=== PATIENT | female | born 1950 | race Caucasian/White ===

== ENCOUNTER 2019-08-09 23:29 | Emergency (ER) | payer OTHER, MEDICARE ==
--- NOTE | 2019-08-09 23:31 | PDOC ---
History of Present Illness - General Chief Complaint: Pain Stated Complaint: ARM PAIN/ANXIETY Time Seen by Provider: 08/09/19 23:31 - History of Present Illness Initial Comments: 08/10/19 00:17 This 69-year-old woman with a history of breast cancer (12 years ago) and TIA in April 2019 presents with sudden onset of discomfort in posterior left upper arm for the last few hours. She also has noted dilated superficial veins of her chest wall and left upper back this evening. No history of trauma in the area of discomfort except for zoster immunization in the mid upper arm 3 weeks ago. She has noted nontender, nonpainful thickened area in the dorsum of the left forearm for the last week. No chest pain, shortness of breath, cough. Patient has a history of venous thrombosis: Left subclavian/IJ veins after placement of Port-A-Cath for chemotherapy after her surgery 12 years ago. No recent surgery/immobilization. 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 Patient was started on statin and aspirin 3 times a week. Patient had right mastectomy with axillary lymph node dissection and left prophylactic mastectomy (no lymph node dissection) in 2007 followed by chemotherapy. Non-smoker; no daily alcohol or recreational drug use Medications as noted below No known allergies Past History - Past Medical History Allergies/Adverse Reactions: Allergies Allergy/AdvReac Type Severity Reaction Status Date / Time No Known Allergies Allergy Verified 02/01/19 11:19 Home Medications: Ambulatory Orders Amlodipine Besylate [Norvasc -] 5 mg PO DAILY 02/01/19 Biotin [Meribin] 5 mg PO HS 02/01/19 Ca/D3/Mag Ox/Zinc/Bisque Tile Burner/Hernandez/Bor [Calcium 600+D3 Plus Caplet] 1 each PO HS Carvedilol 3.125 mg PO DAILY 02/01/19 Levetiracetam [Keppra Xr -] 1,500 mg PO BID 02/01/19 Multivit-Minerals/Folic Acid [One Daily Womens 50 Plus Tab] 0.4 mg PO DAILY Omeprazole 40 mg PO DAILY 02/01/19 Oxcarbazepine [Trileptal] 450 mg PO DAILY 02/01/19 Oxcarbazepine [Trileptal] 600 mg PO HS 02/01/19 Aspirin [Aspirin EC] 81 mg PO WEEKLY 08/09/19 Pravastatin Sodium 10 mg PO HS 08/09/19 Cancer: Yes (BREAST) COPD: No HTN: Yes Seizures: Yes - Surgical History Abdominal Surgery: Yes (ABDOMINOPLASTY) Cholecystectomy: Yes - Psycho Social/Smoking Cessation Hx Smoking History: Never smoked Hx Alcohol Use: No Drug/Substance Use Hx: No Review of Systems - Review of Systems Able to Perform ROS?: Yes Comments:: 12 point review of systems is negative except for what is noted in the history of present illness *Physical Exam - Physical Exam GENERAL: Adult female, alert and oriented x3, no acute distress ; no respiratory distress, speaking in full sentences Pulse oximetry on room air 99 %, RR16/min, 150/95, HR80/min HEAD: Normal with no signs of trauma. EYES: PERRLA, EOMI, sclera anicteric, conjunctiva clear. ENT: Ears normal, nares patent, oropharynx clear without exudates. Moist mucous membranes. NECK: Normal range of motion, supple without lymphadenopathy, JVD, or masses. LUNGS: Breath sounds equal, clear to auscultation bilaterally. No wheezes, and no crackles. HEART:Regular rate and rhythm, normal S1 and S2 2/6 systolic murmur L sternal border, rub or gallop. CHEST WALL: Mildly dilated superficial veins scattered on left chest wall and left upper back ABDOMEN:.normal bowel sounds No guarding,tenderness or rebound.No masses No distention. EXTREMITIES: Left upper extremity-3 cm x 3 cm nontender, nonfluctuant, non- erythematous thickened area of dorsum mid forearm No masses, lacerations/ abrasions or other abnormality evident in posterior upper region where patient is feeling discomfort Radial pulses easily palpable at wrist and equal to right radial pulse No dilated superficial veins evident Remainder of the extremity exam is normal NEUROLOGICAL: Cranial nerves II through XII grossly intact. Normal speech. No focal neurological deficits. MUSCULOSKELETAL: Back non-tender to palpation, no CVA tenderness SKIN: Warm, Dry, normal turgor, no rashes or lesions noted. Twelve-lead electrocardiogram performed: Normal sinus rhythm at 74 bpm; there is poor R wave progression but no acute ST or T wave abnormality seen. [place] is normal as are intervals. There is no evidence of acute cardiac arrhythmia ED Treatment Course - LABORATORY CBC & Chemistry Diagram: 08/10/19 00:20 08/10/19 00:20 Medical Decision Making - Medical Decision Making Because of the patient's history of thromboembolic issues and rebound history of cancer, she is at some risk for current symptoms being secondary to acute thrombosis/embolus, especially suggestive because of appearance of dilated superficial veins in the upper arm and left side of her chest which the patient states she had never seen before. CBC/chemistry profile/troponin/INR/d-dimer sent and IV access obtained. Doppler duplex study of the left upper extremity ordered to evaluate for acute DVT. Preliminary interpretation by Imaging correctional nurse: No evidence of acute DVT or other abnormality. Laboratory evaluation was essentially normal except for mild elevation of d- dimer (523). Although the patient has no acute symptoms for pulmonary embolus, elevated d-dimer and presence of possible dilated superficial veins of the thorax necessitated CT angiogram study. Pulmonary interpretation by Imaging correctional nurse: No evidence of pulmonary embolus. No evidence of thoracic aortic aneurysm or dissection. Lungs are clear of infiltrates, effusions or other acute abnormality. 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 Results discussed with the patient and her daughter. While it is unclear why she had never seen the superficial dilated veins of the collateral system, they are likely related to the left subclavian/internal jugular thrombosis that occurred when her Port-A-Cath was inserted for chemotherapy 12 years ago. The etiology of her left upper arm discomfort is unclear. She has been recommended to monitor the area closely for development of rash, swelling/redness consistent with skin infection or other abnormality. She should follow-up with her general doctor within the next several days. She has an appointment with her breast surgeon, Dr. Zee in 1 week. If she develops more severe pain, swelling/redness in her left arm or chest prior to being evaluated by her doctors, she should return to the ER Discharge - Discharge Information Problems reviewed: Yes Clinical Impression/Diagnosis: Collateral circulation (venous), Left arm pain Condition: Stable Disposition: HOME - Follow up/Referral Referrals: Linda Gonzales MD [Primary Care Provider] - - Patient Discharge Instructions Patient Printed Discharge Instructions: DI for Arm Pain Additional Instructions: Contact your general doctor regarding today's ER visit and follow-up as planned Follow-up with Dr. Zee next week as previously arranged Return to ER if you have any further pain, swelling, redness in your arm Return to ER if you have any shortness of breath, palpitations or chest pain - Post Discharge Activity
[2019-08-09 23:43] VITALS: BP 150/95; PULSE 80; TEMP 98.4; BMI 35.1
[2019-08-10 01:02] LABS: BASO % 0.7 % (0-2.0); EOS % 7.1 % (0-4.5); HEMATOCRIT 36.4 % (32.4-45.2); HEMOGLOBIN 12.4 GM/dL (10.7-15.3); LYMPH % 17.1 % (8-40); MCH 30.6 pg (25.7-33.7); MCHC 34.1 g/dl (32.0-36.0); MEAN CELL VOLUME 89.6 fl (80-96); MEAN PLT VOLUME 7.5 fl (7.5-11.1); MONO % 11.5 % (3.8-10.2); NEUT % 63.6 % (42.8-82.8); PLATELET COUNT 308 K/MM3 (134-434); RBC 4.06 M/mm3 (3.60-5.2); RDW 13.5 % (11.6-15.6); WHITE BLOOD COUNT 7.8 K/mm3 (4.0-10.0)
[2019-08-10 01:15] LABS: INR 0.97 (0.83-1.09); PROTHROMBIN TIME (PATIENT) 11.5 SEC (9.7-13.0)
[2019-08-10 01:33] LABS: ALBUMIN 3.8 g/dl (3.4-5.0); ALK PHOS 115 U/L (45-117); ANION GAP 8 MMOL/L (8-16); BILIRUBIN,TOTAL 0.2 mg/dL (0.2-1); BLOOD UREA NITROGEN 17.6 mg/dL (7-18); CALCIUM 9.1 mg/dL (8.5-10.1); CHLORIDE 100 mmol/L (98-107); CO2 25 mmol/L (21-32); CREATININE 0.6 mg/dL (0.55-1.3); GLUCOSE,RANDOM 123 mg/dL (74-106); POTASSIUM 4.1 mmol/L (3.5-5.1); SGOT/AST 24 U/L (15-37); SGPT/ALT 27 U/L (13-61); SODIUM 134 mmol/L (136-145); TOT PROT 7.1 g/dl (6.4-8.2)
--- NOTE | 2019-08-10 13:15 | EKG ---
Test Reason : Blood Pressure : / mmHG Vent. Rate : 074 BPM Atrial Rate : 074 BPM P-R Int : 174 ms QRS Dur : 104 ms QT Int : 392 ms P-R-T Axes : 043 -10 045 degrees QTc Int : 435 ms NORMAL SINUS RHYTHM CANNOT RULE OUT ANTERIOR INFARCT , AGE UNDETERMINED NONSPECIFIC INTRAVENTRICULAR CONDUCTION DEFECT NONSPECIFIC ST ABNORMALITY Confirmed by NITIN CATES MD ([id number]) on 08/10/2019 1:15:31 PM Referred By: MD ALVA Confirmed By:NITIN CATES MD
== END 2019-08-10 04:47 | disposition home or self-care (01) ==
LOC: FER 23:29
DX: M79.602 Pain in left arm (principal); I87.8 Other specified disorders of veins; Z85.3 Personal history of malignant neoplasm of breast; Z86.73 Personal history of transient ischemic attack (TIA), and cerebral infarction without residual deficits; F41.9 Anxiety disorder, unspecified
CPT/HCPCS: 36415; 71275-TC; 80053; 82550; 84484; 85025; 85379; 85610; 93005; 93971; 99285-25; Q9967

== ENCOUNTER 2020-01-20 05:28 | Day surgery (SDC) | payer OTHER, MEDICARE ==
[2020-01-16 15:25] VITALS: BMI 35.4
[~2020-01-20 05:28] MED LIST: IOHEXOL 300 MG/ML INFUS..BTL IJ ONE
[2020-01-20] MEDS ORDERED: SUCCINYLCHOLINE CHLORIDE 200 MG/10 ML SYRINGE ONE (07:47)
[2020-01-20] MEDS ORDERED: MIDAZOLAM HCL 2 MG/2 ML SINGLE DOSE VIAL ONE (07:47)
[2020-01-20] MEDS ORDERED: PROPOFOL 20 ML ONE (07:47)
[2020-01-20] MEDS ORDERED: EPHEDRINE SULFATE/0.9% NACL/PF 50 MG/10 ML SYRINGE NR ONE (08:30)
[2020-01-20] MEDS ORDERED: IOHEXOL 300 MG/ML INFUS..BTL IJ ONE ×2 (08:31)
[2020-01-20] MEDS ORDERED: DEXAMETHASONE SOD PHOSPHATE 4 MG/1 ML VIAL ONE (08:32)
--- NOTE | 2020-01-20 08:57 | OP ---
Operative Note - Note: Operative Date: 01/20/20 Pre-Operative Diagnosis: right ureteral stone Operation: cystoscopy/right retrograde pyelogram/right ureteroscopic stone manipulation and stent placement Findings: 7+ mm right proximal ureteral stone which is partially obstructing Post-Operative Diagnosis: Same as Pre-op Surgeon: Lacho Tripp Anesthesia: General Drains & Tubes with Location: 12/01 right ureteral stent
[2020-01-20] MEDS ORDERED: ONDANSETRON 4 MG/2 ML VIAL IVPUSH PRN (09:08)
[2020-01-20] MEDS ORDERED: oxyCODONE HCL 5 MG TABLET PO PRN (09:08)
[2020-01-20] MEDS ORDERED: LACTATED RINGERS SOLUTION 1,000 ML IV SCH (09:15)
[2020-01-20 11:56] VITALS: BP 140/82; PULSE 75; TEMP 96.6
--- NOTE | 2020-01-20 18:12 | OP ---
DATE OF OPERATION: 01/20/2020 PREOPERATIVE DIAGNOSIS: Right ureteral stone. POSTOPERATIVE DIAGNOSIS: Right ureteral stone. PROCEDURE: Cystoscopy, right retrograde pyelogram, right ureteroscopic stone manipulation and stent placement. SURGEON: Kalpesh Franklin MD ANESTHESIA: Fractional. DESCRIPTION OF PROCEDURE: Patient was brought to the operating room, placed in the supine position on the operating room table. Ultrasonography and fluoroscopy are performed. It shows a question of a calcific density in the right upper ureter. At this point, a retrograde pyelogram was performed, which showed a question of filling defect in the upper left ureter. There was no evidence of trauma at the distal ureter or ureteral orifice consistent with a recently passed stone. No evidence of stone noted within the gladder. At this point, ureteroscopy was performed and in the upper ureter an obstruction presented itself. A second wire was utilized to transverse this obstruction. The stone was noted; however, with water pressure the stone migrated into the kidney. At this point, it was decided that due to the poor visualization with the hematuric urine now draining from the kidney it was decided that the patient will be best served with a stent and subsequent extracorporeal shockwave lithotripsy. A 6-Macedonian 22-cm stent was placed utilizing Seldinger technique over the wire. At this point, the patient is aroused from anesthesia and sent to the recovery room. No complications were noted. The patient tolerated the procedure very well. KALPESH FRANKLIN M.D. /[id number]
== END 2020-01-20 11:40 | disposition home or self-care (01) ==
LOC: JASU-SURG 05:28
PROVIDERS: ATTEND Urology
PROC: 0T7D8DZ Dilation of Urethra with Intraluminal Device, Via Natural or Artificial Opening Endoscopic (ICD-10-PCS; principal; 2020-01-20 08:00)
PROC: 0T9680Z Drainage of Right Ureter with Drainage Device, Via Natural or Artificial Opening Endoscopic (ICD-10-PCS; 2020-01-20 08:00)
DX: N20.1 Calculus of ureter (principal)
CPT/HCPCS: 76000-TC-FY; 94760

== ENCOUNTER 2020-02-03 04:16 | Day surgery (SDC) | payer OTHER, MEDICARE ==
[2020-01-31 16:55] VITALS: BMI 36.3
[2020-02-03] MEDS ORDERED: MIDAZOLAM HCL 2 MG/2 ML SINGLE DOSE VIAL ONE (08:21)
[2020-02-03] MEDS ORDERED: DEXAMETHASONE SOD PHOSPHATE 4 MG/1 ML VIAL ONE (08:21)
[2020-02-03] MEDS ORDERED: PROPOFOL 20 ML ONE (08:21)
[2020-02-03] MEDS ORDERED: LEVOFLOXACIN IVPB ONE (08:41)
--- NOTE | 2020-02-03 08:58 | OP ---
Operative Note - Note: Operative Date: 02/03/20 Pre-Operative Diagnosis: Right renal stone Operation: Right ESWL Findings: 6 mm lelvis Right renal stone Post-Operative Diagnosis: Same as Pre-op Surgeon: Lacho Tripp Anesthesia: Regional Estimated Blood Loss (mls): 0 Operative Report Dictated: Yes
--- NOTE | 2020-02-03 09:53 | OP ---
DATE OF OPERATION: 02/03/2020 PREOPERATIVE DIAGNOSIS: Right renal stone. POSTOPERATIVE DIAGNOSIS: Right renal stone. PROCEDURE: Right extracorporeal shock wave lithotripsy. ATTENDING: Kalpesh Franklin MD ANESTHESIA: Fractional. DESCRIPTION OF PROCEDURE: The patient was brought in the operating room, placed in the supine position on the operating room table. Ultrasonography and fluoroscopy were performed. A 6-mm stone in the right renal pelvis was identified. Anesthesia and preoperative antibiotics were then administered. Administered 3000 impulses, 17 joules of power to the stone. Incidentally noted that there was a stent placed in the right kidney which was in good position. No evidence of hydronephrosis was noted. The patient tolerated the procedure very well. There were no complications noted. The disposition of the patient was to recovery room. KALPESH FRANKLIN M.D. [id number]
--- NOTE | 2020-02-03 09:58 | OP ---
DATE OF OPERATION: 02/03/2020 PREOPERATIVE DIAGNOSIS: Right renal stone. POSTOPERATIVE DIAGNOSIS: Right renal stone. PROCEDURE: Right extracorporeal shock wave lithotripsy. ATTENDING: Kalpesh Franklin MD ANESTHESIA: Fractional. DESCRIPTION OF PROCEDURE: Patient was brought in the operating room, placed in the supine position on the operating room table. Ultrasonography and fluoroscopy were performed. A 6-mm stone was noted in the right renal pelvis. At this point anesthesia and preoperative antibiotics were administered. A stent was also noted to be in good position in the right kidney. Shock wave lithotripsy was then started. Administered 3000 impulses at 20 joules of power to the stone with excellent fragmentation of the stone noted. There were no complications noted. Disposition for the patient was to recovery room. KALPESH FRANKLIN M.D. /[id number]
[2020-02-03] MEDS ORDERED: oxyCODONE HCL 5 MG TABLET PO PRN (10:55)
[2020-02-03] MEDS ORDERED: ONDANSETRON 4 MG/2 ML VIAL IVPUSH PRN (10:55)
[2020-02-03] MEDS ORDERED: ACETAMINOPHEN 325 MG TABLET (FP) PO PRN (10:55)
[2020-02-03] MEDS ORDERED: LACTATED RINGERS SOLUTION 1,000 ML IV SCH (11:00)
[2020-02-03 11:39] VITALS: BP 131/75; PULSE 60; TEMP 96.8
== END 2020-02-03 12:19 | disposition home or self-care (01) ==
LOC: JASU-SURG 04:16
PROVIDERS: ATTEND Urology
PROC: 0TF3XZZ Fragmentation in Right Kidney Pelvis, External Approach (ICD-10-PCS; principal; 2020-02-03 08:46)
DX: N20.0 Calculus of kidney (principal)

== ENCOUNTER 2023-03-30 05:13 | Day surgery (SDC) | payer OTHER, MEDICARE ==
[2023-03-23 12:46] VITALS: BMI 39.6
[2023-03-30 11:22] VITALS: TEMP 97.8
[2023-03-30 11:36] VITALS: RESP 18
[2023-03-30 12:04] VITALS: BP 123/84; PULSE 86
== END 2023-03-30 12:15 | disposition home or self-care (01) ==
LOC: JASU-ENDO 05:13
PROVIDERS: ATTEND Internal Medicine Gastroenterology
PROC: 0DB68ZX Excision of Stomach, Via Natural or Artificial Opening Endoscopic, Diagnostic (ICD-10-PCS; 2023-03-30)
PROC: 0DB78ZX Excision of Stomach, Pylorus, Via Natural or Artificial Opening Endoscopic, Diagnostic (ICD-10-PCS; 2023-03-30)
PROC: 0DBK8ZX Excision of Ascending Colon, Via Natural or Artificial Opening Endoscopic, Diagnostic (ICD-10-PCS; principal; 2023-03-30 10:00)
DX: Z12.11 Encounter for screening for malignant neoplasm of colon (principal); Z86.010 Personal history of colon polyps; D12.2 Benign neoplasm of ascending colon; K64.8 Other hemorrhoids; K31.7 Polyp of stomach and duodenum; K44.9 Diaphragmatic hernia without obstruction or gangrene
CPT/HCPCS: 88305-TC; 88342-TC

== ENCOUNTER 2024-01-15 04:02 | Day surgery (SDC) | payer OTHER ==
[2024-01-12 09:39] VITALS: BMI 37.3
[2024-01-15 06:51] VITALS: RESP 20
[2024-01-15] MEDS ORDERED: ONDANSETRON 4 MG/2 ML VIAL ONE (08:33)
[2024-01-15] MEDS ORDERED: MIDAZOLAM HCL 2 MG/2 ML SINGLE DOSE VIAL ONE (08:33)
[2024-01-15 11:23] VITALS: BP 107/56; PULSE 63; TEMP 97.8
== END 2024-01-15 11:40 | disposition home or self-care (01) ==
LOC: JASU-SURG 04:02
PROVIDERS: ATTEND Urology
PROC: 0TF3XZZ Fragmentation in Right Kidney Pelvis, External Approach (ICD-10-PCS; principal; 2024-01-15 08:30)
DX: N20.0 Calculus of kidney (principal)